=== PATIENT | male | born 1970 | race Hispanic/Latino ===

== ENCOUNTER 2016-12-09 19:07 | Emergency (ER) | payer SELFPAY ==
[2016-12-09 19:13] VITALS: BP 133/89; PULSE 72; RESP 16; O2SAT 98
[2016-12-09] MEDS ORDERED: 0.9% Sodium Chloride Inhalation Solution ONE (19:45)
[2016-12-09] MEDS ORDERED: Tetracaine 0.5% 4 mL Ophthalmic Solution ONE (19:46)
[2016-12-09] MEDS ORDERED: Fluorescein 0.6 mg Ophthalmic Strip ONE (19:46)
--- NOTE | 2016-12-09 19:51 | ED.REPORT ---
HPI-Eye Problem Date of Service Dec 09, 2016 ED Provider: John Granados MD 45 year old male was working under his car today when he suddenly developed a foreign body feeling in his R eye. Pt unable to appreciate any FB but has a foreign body sensation. He has attempted eye rinses with no relief. No blurred vision. Pt does not wear contact lenses. He has no previous problems with his eyes. Nursing Notes Stated Complaint: POSSIBLE FOREIGN BODY IN RIGHT EYE Chief Complaint: Eye Nursing Notes Reviewed: Yes Allergies: Coded Allergies: No Known Allergies (Unverified Allergy, Unknown, 12/09/16) General Time Seen by MD: 19:50 Chief Complaint Right eye affected, Foreign body sensation Hx Obtained From: Patient Arrived By: Walk-in Sudden in Onset?: Yes Onset Occurred: Just prior to arrival Symptom Duration: Since onset Progression Since Onset: Constant Severity: Current: Mild Associated with: Denies: Blurred vision, Fever Pertinent Negative: Relieved by nothing Risk-Eye Problem Eye Injury Risk Stratification RF Statements: Risk factors reviewed, No risk factors Past Medical History Past Medical History None reported Past Surgical History None reported Smoking History Unknown if Ever Smoker Review of Systems Basic Review of Systems Respiratory: No shortness of breath, No cough, No wheeze Cardiovascular: No chest pain, No dyspnea on exertion, No orthopnea, No parox noct dyspnea, No palpitations Psychiatric: Normal thought content Constitutional: Denies: Fever Eyes: Reports: Eye pain right, Denies: Blurred bilateral, Visual loss bilateral Complete sys rev & neg: except as marked. Physical Exam Initial Vital Signs Vital Signs (First) Date Time Temp Pulse Resp B/P Pulse Ox O2 Delivery O2 Flow Rate FiO2 12/09/16 19:13 36.7 72 16 133/89 98 Room Air Initial VS: Reviewed General / Const: Well-developed, Well-nourished Neck: Full range of motion Respiratory: No respiratory distress Skin: Warm, Dry, No cyanosis Neurologic: Alert, Oriented Psychiatric: Mood/affect normal, Behavior normal Head / Eyes: Atraumatic, Normocephalic, PERRL, EOMI Small black foreign body under his lower lid. Procedures Foreign Body Removal - Eye Time: 20:29 Procedure Performed by: ED physician Consent / Setup / Site Prep: Consent from patient, Hand hygiene observed Eye / Location / # FB: Right eye, Under lid, Single foreign body Anesthesia/Equipment/Procedure: Proparacaine, Cotton swab removal Post-Procedure / Complications: Complete removal, No complications, Tolerated procedure well, Patient stable Slit Lamp Exam fluorescein exam. Time: 20:30 Procedure Performed by: ED physician Which Eye: Right Eyelid / Conjunctiva / Sclera: Eyelid(s) normal, Tear film clear, Conjunctiva normal, Sclera normal Cornea/Ant Chamber/Iris/Lens: Cornea normal (No abrasion) Re-Eval/Medical Decision Med Decision/Clinical Course Patient is a healthy 45-year-old male who presents with foreign body sensation in his right eye. He thinks that a piece of grit may have fallen from the undercarriage of his car when he was working on his vehicle. Examination reveals small foreign body in eye which was removed by cotton-tipped applicator. Tetracaine was applied to the eye and it was examined with fluorescein and slit lamp. No corneal abrasions or ulcerations present. Patient does not wear contact lenses. He reports immediate relief after removal of the foreign body. At this time, I feel these appropriate discharge home. Visual acuity is normal. Follow-up and return precautions were reviewed in detail and he is discharged in good condition. Re-Evaluation/Progress : Time of Eval: 20:29 Re-Evaluation/Progress Note: Discussed plan for discharge and follow up. All questions addressed. Counseled Regarding: Diagnosis, Need for follow-up, When/why to return to ED Discharge & Departure Primary Impression: Foreign body of right eye Encounter type: initial encounter Qualified Code: T15.91XA - Foreign body on external eye, part unspecified, right eye, initial encounter Additional Impression: Pain, eye, right Disposition: Home Discharge Condition All VS Reviewed: Yes Condition: Improved Patient Instructions: Eye Foreign Body (ED) Additional Instructions: Thank you for seeking care at [facility] emergency room. You were seen today due to a foreign body in your right eye which was completely removed. In the future make sure that you are wearing glasses to prevent this. You should return to the ED or see your PCP if you develop blurred vision, eye pain or redness of the eye. Thank you for letting us partake in your care today. Referrals: NOPCP (PCP) Scribe Attestation Portions of this note were transcribed by Marely Chisholm. I, (Dr. Granados) personally performed the history, physical exam and medical decision-making; I reviewed and confirmed the accuracy of the information in the transcribed note. Signed by: Marely Chisholm. [place], 12/09/20162032 John Granados MD Dec 09, 2016 19:51 Marely Chisholm Dec 09, 2016 20:34
[2016-12-09] MEDS ORDERED: Tetracaine 0.5% 4 mL Ophthalmic Solution BOTH_EYES ONE (19:55)
[2016-12-09] MEDS ORDERED: Fluorescein 0.6 mg Ophthalmic Strip BOTH_EYES ONE (19:55)
[2016-12-09 21:09] VITALS: BP 128/82; PULSE 68; RESP 16; O2SAT 98
== END 2016-12-09 21:09 | disposition home or self-care (01) ==
LOC: SED 19:07
DX: T15.91XA Foreign body on external eye, part unspecified, right eye, initial encounter (principal); X58.XXXA Exposure to other specified factors, initial encounter; Y92.9 Unspecified place or not applicable; Y93.89 Activity, other specified; Y99.8 Other external cause status; H57.11 Ocular pain, right eye